=== PATIENT | female | born 1965 ===

== ENCOUNTER 2018-11-30 18:28 | Emergency (ER) | payer MEDICARE ==
--- NOTE | 2018-11-30 18:34 | Event Note ---
ED Screening Note Date of service: 11/30/18 Time: 18:30 ED Screening Note: This is a 53 y.o. F. that presents to the ER with suicidal thoughts. PMH HTN, DM, HLD, schizoaffective, & bipolar Patient states her plan is to take all of her medications to end her life. States "I need to get it over with". Current smoker This initial assessment/diagnostic orders/clinical plan/treatment(s) is/are subject to change based on patients health status, clinical progression and re- assessment by fellow clinical providers in the ED. Further treatment and workup at subsequent clinical providers discretion. Patient/guardian urged not to elope from the ED as their condition may be serious if not clinically assessed and managed. Initial orders include: Labs
[2018-11-30 20:01] LABS: Basophils # (Auto) 0.1 K/mm3 (0.0-0.1); Basophils % (Auto) 0.6 % (0.0-1.8); Eosinophils # (Auto) 0.2 K/mm3 (0.0-0.4); Hematocrit 35.7 % (30.3-42.9); Lymphocytes # (Auto) 2.7 K/mm3 (1.2-5.4); Lymphocytes % (Auto) 33.3 % (13.4-35.0); Mean Corpuscular HGB Conc 34 % (30-34); Mean Corpuscular Volume 89 fl (79-97); Monocytes # (Auto) 0.6 K/mm3 (0.0-0.8); Monocytes % (Auto) 7.6 % (0.0-7.3); Platelet Count 387 K/mm3 (140-440); Red Blood Count 4.03 M/mm3 (3.65-5.03); Red Cell Distribution Width 15.9 % (13.2-15.2)
[2018-11-30 20:19] LABS: BUN/Creatinine Ratio 19; Blood Urea Nitrogen 15 mg/dL (7-17); Calcium 9.8 mg/dL (8.4-10.2); Hemolysis Index 7
[2018-11-30 21:51] LABS: Amphetamine Screen,Urine PRESUMPTIVE NEGATIVE; Benzodiazepines Screen,Urine PRESUMPTIVE NEGATIVE; Cannabinoid Screen,Urine PRESUMPTIVE NEGATIVE; Cocaine Screen,Urine PRESUMPTIVE NEGATIVE; Methadone Screen,Urine PRESUMPTIVE NEGATIVE; Opiate Screen,Urine PRESUMPTIVE NEGATIVE
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
[2018-11-30 22:08] LABS: Bilirubin,Urine NEG (Negative); Blood,Urine NEG (Negative); Color,Urine Yellow (Yellow); Mucus,Urine FEW /HPF; Protein,Urine <15 mg/dL mg/dL (Negative)
[2018-12-01] MEDS ORDERED: GLUCOPHAGE PO SCH (11:00)
[2018-12-01] MEDS ORDERED: ZESTRIL PO SCH (11:00)
[2018-12-01] MEDS ORDERED: HALFPRIN EC PO SCH (11:00)
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
[2018-12-01 13:57] VITALS: BP 153/74
== END 2018-12-01 14:40 ==
LOC: ED 18:28 → EEVIPCON 18:28 → ED 12-01 14:40
DX: F31.9 Bipolar disorder, unspecified (principal); F20.9 Schizophrenia, unspecified; I10 Essential (primary) hypertension; E11.9 Type 2 diabetes mellitus without complications; F17.200 Nicotine dependence, unspecified, uncomplicated; F12.90 Cannabis use, unspecified, uncomplicated; Z90.49 Acquired absence of other specified parts of digestive tract; Z98.51 Tubal ligation status; Z79.82 Long term (current) use of aspirin; Z79.899 Other long term (current) drug therapy; Z88.8 Allergy status to other drugs, medicaments and biological substances
CPT/HCPCS: 36415; 80048; 80307; 80320; 81001; 82962; 85025; 99285; G0480